=== PATIENT | male | born 1945 | race Caucasian/White ===

== ENCOUNTER 2019-10-23 06:45 | Emergency (ER) | payer MEDICARE, OTHER ==
[~2019-10-23] VITALS: Ht 172.7 cm; Wt 72.7 kg
[2019-10-23 06:48] VITALS: BP 136/88
[2019-10-23] MEDS ORDERED: HYDR-3686 PO (07:31)
== END 2019-10-23 07:44 | disposition home or self-care (01) ==
LOC: ER 06:46
DX: F41.9 Anxiety disorder, unspecified (principal); J45.909 Unspecified asthma, uncomplicated; Z76.0 Encounter for issue of repeat prescription; Z86.73 Personal history of transient ischemic attack (TIA), and cerebral infarction without residual deficits; Z87.891 Personal history of nicotine dependence; Z98.890 Other specified postprocedural states; Z79.899 Other long term (current) drug therapy
CPT/HCPCS: 99283